=== PATIENT | female | born 1980 | race Caucasian/White ===

== ENCOUNTER 2023-08-30 09:17 | Emergency (ER) | payer BC ==
[~2023-08-30] VITALS: Ht 170.2 cm; Wt 74.8 kg
[2023-08-30] MEDS ORDERED: OMEPRAZOLE20 MG PO (09:56)
[2023-08-30] MEDS ORDERED: ADMELOG100 UNIT/1 (09:56)
[2023-08-30] MEDS ORDERED: ATORVASTATIN CA20 MG PO (09:56)
[2023-08-30 10:45] LABS: ABG PH 7.389 (7.35-7.45); ABG PO2 105.7 mmHg (80-100); ABG pCO2 25.3 mmHg (35-45); BICARBONATE 14.9 mmol/l (23-25); SaO2 97.8 %
[2023-08-30 10:46] LABS: Tco2 15.7 mmol/l; allen test SATISFACTORY; o2 21 %; puncture site RADIAL LEFT
[2023-08-30 11:15] LABS: PH,URINE 5.5 (5.0-8.0); URINE APPEARANCE Cloudy; URINE BILIRRUBIN Negative (NEGATIVE); URINE BLOOD Large; URINE COLOR Yellow; URINE LEUKOCYTE Negative; URINE NITRATE Negative; URINE PROTEIN 30 (NEGATIVE)
[2023-08-30 11:17] LABS: HEMATOCRIT 39.2 % (36.0-45.00); HEMOGLOBIN 13.7 g/dL (12.0-15.00); MEAN CELL VOLUME 87.9 fL (80.00-100.00); MEAN CORPUSCULAR HEMOGLOBIN 30.7 pg (27.00-32.0); MEAN CORPUSCULAR HGB CONC 34.9 g/dl (32.0-36.0); PLATELET COUNT 231 K/uL (150-450); RED BLOOD COUNT 4.46 M/uL (4.00-6.00); RED CELL DISTRIBUTION WIDTH 12.3 % (11.5-14.5)
[2023-08-30 11:20] LABS: URINE BACTERIA 7703.4 uL (0.0-1933); URINE RBC 139.5 uL (0.0-20.8); URINE WBC 74.3 uL (0.0-23.2)
[2023-08-30 11:45] LABS: BILIRUBIN TOTAL 1.04 mg/dL (0.3-1.2); CALCIUM 9.5 mg/dL (8.5-10.1); CREATININE SERUM 1.02 mg/dL (0.55-1.02); GFR 59.15; GLOBULINA 3.3 G/DL (2.4-3.5); POTASSIUM 3.49 mEq/L (3.5-5.1); TOTAL PROTEIN 7.3 gm/dL (6.4-8.2)
[2023-08-30 11:49] LABS: URINE GLUCOSE >=1000 MG/DL (NEGATIVE)
[2023-08-30 11:51] LABS: URINE MUCUS SCANT
== END 2023-08-30 15:52 | disposition home or self-care (01) ==
LOC: ER 09:18
PROVIDERS: Emergency Medicine
DX: K52.89 Other specified noninfective gastroenteritis and colitis (principal); N20.1 Calculus of ureter; Z88.8 Allergy status to other drugs, medicaments and biological substances